=== PATIENT | female | born 1965 | race Two or more races ===

== ENCOUNTER 2017-12-19 06:19 | Emergency (ER) | payer SELFPAY ==
[~2017-12-19] VITALS: Ht 160 cm; Wt 79.8 kg
[2017-12-19 06:23] VITALS: Ht 160 cm; Wt 79.8 kg
[2017-12-19 10:10] VITALS: BP 116/66
== END 2017-12-19 10:10 | disposition home or self-care (01) ==
LOC: ED 06:19
DX: S16.1XXA Strain of muscle, fascia and tendon at neck level, initial encounter (principal); S39.012A Strain of muscle, fascia and tendon of lower back, initial encounter; M54.42 Lumbago with sciatica, left side; M25.552 Pain in left hip; M25.572 Pain in left ankle and joints of left foot; J45.909 Unspecified asthma, uncomplicated; E11.9 Type 2 diabetes mellitus without complications; Z88.0 Allergy status to penicillin; Z88.5 Allergy status to narcotic agent; V49.88XA Car occupant (driver) (passenger) injured in other specified transport accidents, initial encounter; Z88.6 Allergy status to analgesic agent; Y93.I9 Activity, other involving external motion; Y92.413 State road as the place of occurrence of the external cause; Y99.8 Other external cause status
CPT/HCPCS: J1885; Q0092